=== PATIENT | male | born 1975 | race Caucasian/White ===

== ENCOUNTER 2019-09-07 05:13 | Emergency (ER) | payer SELFPAY ==
[~2019-09-07] VITALS: Ht 165.1 cm; Wt 64.0 kg
[2019-09-07 05:25] VITALS: BP 167/88
== END 2019-09-07 06:04 | disposition left against medical advice (07) ==
LOC: ER 05:13
DX: Z53.21 Procedure and treatment not carried out due to patient leaving prior to being seen by health care provider (principal)
CPT/HCPCS: 93005